=== PATIENT | female | born 1985 | race Caucasian/White ===

== ENCOUNTER 2017-05-22 20:48 | Inpatient (IN) | payer BC ==
[2017-05-22] MEDS ORDERED: ONDANSETRON 4 MG ODT BU PRN (21:23)
[2017-05-22] MEDS ORDERED: ONDANSETRON 4 MG ODT ONE (21:33)
[2017-05-22] MEDS ORDERED: MEPIVACAINE HCL 1% MPF 30 ML SOL INFIL PRN (21:35)
[2017-05-22] MEDS ORDERED: DIPHENHYDRAMINE 50 MG/ML SOL IV PRN (21:35)
[2017-05-22] MEDS ORDERED: NALBUPHINE HCL 20 MG/ML SOL IV PRN (21:35)
[2017-05-22] MEDS ORDERED: LACTATED RINGERS 1,000 ML IV PRN (21:35)
[2017-05-22] MEDS ORDERED: EPHEDRINE SULFATE 50 MG/ML SOL IV PRN (21:35)
[2017-05-22] MEDS ORDERED: NALOXONE HYDROCHLORIDE 0.4 MG/ML SOL IV PRN (21:35)
[2017-05-22] MEDS ORDERED: OXYTOCIN 10000 MU/ML SOL IM PRN (21:35)
[2017-05-22] MEDS ORDERED: METHYLERGONOVINE MALEATE 0.2 MG/ML SOL IM PRN (21:35)
[2017-05-22] MEDS ORDERED: FENTANYL 100MCG/2ML SOL IV PRN (21:35)
[2017-05-22] MEDS ORDERED: SODIUM CHLORIDE 0.9% FLUSH 10 ML SOL IV PRN (21:35)
[2017-05-22] MEDS ORDERED: CARBOPROST 250 MCG/ML SOL IM PRN (21:35)
[2017-05-22] MEDS: LACTATED RINGERS 1,000 ML IV SCH ×3 (21:37→23:10)
[2017-05-22 21:44] LABS: BASOPHILS % (AUTO) 0 % (0-3); EOSINOPHILS % (AUTO) 0 % (0-9); HEMATOCRIT 43 % (35-47); MEAN CORPUSCULAR HGB CONC 33.3 gm/dl (32.0-36.0); MEAN CORPUSCULAR VOLUME 84 fL (81-99); MONOCYTES % (AUTO) 4.8 % (0-12); NEUTROPHILS % (AUTO) 78.6 % (37-80)
[2017-05-22] MEDS ORDERED: ROPIVACAINE HYDROCHLORIDE 5 MG/ML SOL ONE ×2 (22:07→22:08)
[2017-05-22] MEDS ORDERED: FENTANYL 250 MCG/ 5ML SOL ONE (22:07)
[2017-05-22] MEDS ORDERED: LIDOCAINE HCL 2% MPF SOL ONE (22:07)
[2017-05-23] MEDS: SODIUM CHLORIDE 0.9% FLUSH 10 ML SOL IV SCH ×3 (00:53→15:57)
[2017-05-23] MEDS ORDERED: METHYLERGONOVINE MALEATE 0.2 MG TAB PO PRN (03:00)
[2017-05-23] MEDS ORDERED: FLEET ENEMA PR PRN (03:00)
[2017-05-23] MEDS ORDERED: BENZOCAINE/MENTHOL 1 SPR TOP PRN (03:00)
[2017-05-23] MEDS ORDERED: APAP/HYDROCODONE 325/5 TAB PO PRN (03:00)
[2017-05-23] MEDS ORDERED: BISACODYL 10 MG SUP PR PRN (03:00)
[2017-05-23] MEDS ORDERED: TEMAZEPAM 15MG 15 MG CAP PO PRN (03:00)
[2017-05-23] MEDS ORDERED: WITCH HAZEL 1 EA PAD TOP PRN (03:00)
[2017-05-23] MEDS: IBUPROFEN 600 MG TAB PO PRN ×2 (04:02→12:57)
[2017-05-23] MEDS: LACTATED RINGERS 1,000 ML IV SCH ×2 (05:50→15:29)
[2017-05-23] MEDS: DOCUSATE SODIUM 100 MG SGL PO SCH ×2 (09:37→21:02)
[2017-05-24] MEDS: SODIUM CHLORIDE 0.9% FLUSH 10 ML SOL IV SCH (01:15)
[2017-05-24] MEDS: IBUPROFEN 600 MG TAB PO PRN ×3 (04:13→22:34)
[2017-05-24 04:14] VITALS: RESP 16
[2017-05-24] MEDS: DOCUSATE SODIUM 100 MG SGL PO SCH ×2 (11:08→22:34)
[2017-05-24 16:08] VITALS: O2SAT 97
[2017-05-25 05:29] VITALS: BP 115/72; PULSE 68; TEMP 97.4
[2017-05-25] MEDS: IBUPROFEN 600 MG TAB PO PRN (07:26)
[2017-05-25] MEDS: DOCUSATE SODIUM 100 MG SGL PO SCH (09:05)
== END 2017-05-25 11:15 | disposition home or self-care (01) | DRG 560 ==
LOC: OB 20:48 → OBSVTOIN 20:48
PROVIDERS: ADMIT Family Medicine; ATTEND Family Medicine
PROC: 10E0XZZ Delivery of Products of Conception, External Approach (ICD-10-PCS; principal; 2017-05-23)
PROC: 0KQM0ZZ Repair Perineum Muscle, Open Approach (ICD-10-PCS; 2017-05-23)
DX: O70.1 Second degree perineal laceration during delivery (principal); Z37.0 Single live birth; Z3A.38 38 weeks gestation of pregnancy
CPT/HCPCS: 36415; 59025; 85018; 85025; J0670; J2590; J2795; J3010

== ENCOUNTER 2019-05-31 22:42 | Inpatient (IN) | payer BC | END 2019-06-03 13:05 | disposition home or self-care (01) | LOC: OB 22:42 ==